=== PATIENT | female | born 1945 | race Caucasian/White ===

== ENCOUNTER 2019-06-17 12:21 | Inpatient (IN) | payer MEDICARE, BC ==
[~2019-06-17] VITALS: Ht 160 cm; Wt 56.5 kg
[2019-06-17] VITALS (17 sets, daily range): BP systolic 117–151; BP diastolic 59–79; BMI 21.8
--- NOTE | ~2019-06-17 | HEMODYNAMI ---
PATIENT:TAYLOR GREGORIO MEDICAL RECORD: [id number] : 41 [id number] ADMISSION DATE: 06/17/19 Generatedon:06/17/201914:26 Patient name: TAYLOR GREGORIO Patient #: [id number] SS N: : 1945 Date of study: 06/17/2019 Page: Of Hemodynamic Procedure Report Patient Data Patient Demographics Procedure consent was obtained First Name: TAYLOR Gender: Female Last Name: DARLINE : 1945 Patient #: [id number] Age: 74 year(s) Race: Unknown Additional ID: [id number] Contact details [address]: [address] [place] [address] rd State: [place] City: [place] Zip code: [address] Past Medical History Allergies Allergen Reaction Date Comments Reported Other allergy 05/08/2019 pcn Admission Admission Data Admission Date: 06/17/2019 Admission Time: 12:21 Admit Source: Emergency department Procedure Procedure Types Cath Procedure Diagnostic Procedure LHC LHC w/Coronaries PCI Procedure AMI/SVG/MANUFACTURING TECHNOLOGY PROFESSOR PTCA or Stent AMI-BMS/KALEY Initial Procedure Description Procedure Date Procedure Date: 06/17/2019 Procedure Start Time: 13:55 Procedure End Time: 14:20 Procedure Staff Name Function Clarke Victoria MD Performing Physician Иван Godfrey RN Fitness Attendant Avery Hudson RT Monitor Gladys Fajardo RT Monitor Lorena Montez RN Nurse John Morillo RT Scrub Procedure Data Cath Procedure Fluoroscopy Diagnostic fluoroscopy Total fluoroscopy Time: 6.1 time: 6.1 min min Diagnostic fluoroscopy Total fluoroscopy dose: 479 dose: 479 mGy mGy Contrast Material Contrast Material Type Amount (ml) Isovue 300 75 Entry Location Entry Primary Successful Side Size Upsize Upsize Entry Closure Succes sful Closure Location (Fr) 1 (Fr) 2 (Fr) Remarks Device Remarks Femoral Right 6 Fr Exoseal artery Short Estimated blood loss: 10 ml Diagnostic catheters Device Type Used For End Catheter Placement MULTIPACK 3DRC 5Fr Procedure catheter MULTIPACK Pigtail 5 Fr Procedure catheter Procedure Complications No complications Procedure Medications Medication Administration Route Dosage Oxygen etCO2 Nasal cannula 2 l/min Lidocaine 2% added to field 20 Heparin Flush Bag added to field 2 bags (1000units/500ml NS) 0.9% NaCl I.V. 100 ml/hr Versed I.V. 2 mg Fentanyl I.V. 50 mcg Integrilin (Bolus I.V. 5 ml 2mg/ml) Plavix P.O. 600 mg Hemodynamics Rest Heart Rate: 67 (bpm) Pressure Samples Time Site Value (mmHg) Purpose Heart Use Rate(bpm) 13:58 AO 167/81(119) Snapshot 91 14:13 LV 130/32,37 Snapshot 85 14:13 AO 130/63(95) Pullback 81 14:13 LV 150/7,36 Pullback 81 Gradients Valve Time Site 1 Site 2 Mean SEP/DFP Peak To Heart Use (mmHg) (sec/min) Peak Rate (mmHg) (bpm) Aortic 14:13 LV AO 10 24 20 81 150/7,36 130/63(95) Calculations Valve P-P Mean Valve Index Valve Source Name Gradient Area Flow (cm2) Aortic 20 10 20 10 Snapshots Pre Cath Intra NCS Post Cath Vital Signs Time Heart Resp SPO2 etCO2 NIBP (mmHg) Rhythm Pain Sedation Rate (ipm) (%) (mmHg) Status Level (bpm) 13:49:17 64 12 100 0 172/92(152) NSR w/ ST 0 (11) 10(A) Elevation , No pain 13:53:36 95 19 94 0 179/100(140) NSR w/ ST 0 (11) 10(A) Elevation , No pain 13:57:56 88 12 95 0 173/101(137) NSR w/ ST 0 (11) 10(A) Elevation , No pain 14:02:14 86 12 95 0 163/96(129) NSR w/ ST 0 (11) 10(A) Elevation , No pain 14:06:26 101 12 96 0 130/82(107) NSR w/ ST 0 (11) 10(A) Elevation , No pain 14:10:36 80 12 96 0 122/72(100) NSR w/ ST 0 (11) 9(A) Elevation , No pain 14:14:43 81 13 98 0 131/73(101) NSR w/ ST 0 (11) 9(A) Elevation , No pain 14:18:53 79 15 98 0 133/74(105) NSR w/ ST 0 (11) 10(A) Elevation , No pain Medications Time Medication Route Dose Verified Delivered Reason Notes E ffectiveness by by 13:50:38 Oxygen etCO2 2 Clarke Buffie used for Nasal l/min Julien Montez RN procedure cannula 13:50:44 Lidocaine 2% added 20ml Clarke Clarke for local to vial Julien Victoria MD anesthetic field 13:50:50 Heparin Flush added 2 Clarke Buffie used for Bag to bags Julien Montez RN procedure (1000units/500ml field NS) 13:51:01 0.9% NaCl I.V. 100 Clarke Buffie Per ml/hr Julien Montez RN physician 13:59:07 Versed I.V. 2 mg Clarke Buffie for sedation Julien Montez RN 13:59:16 Fentanyl I.V. 50 Clarke Buffie for sedation mcg Julien Montez RN 14:01:22 Integrilin I.V. 5 ml Clarke Buffie for wasted (Bolus 2mg/ml) Julien Montez RN antiplatelet 5 ml therapy of vial 14:23:05 Plavix P.O. 600 Clarke Buffie for mg Julien Montez RN antiplatelet therapy Procedure Log Time Note 13:30:33 Lorena Montez RN sent for patient. Start room use. 13:37:19 Admit Source: Emergency department 13:37:23 ACC Patient presents with STEMI CCS Anginal Class 4--Inability to carry out any physical activity w/o angina. Angina may occur at rest. 13:37:27 Procedure Status Emergent Heart Cath (AMI). 13:37:34 Time tracking: Regular hours (M-F 7:00 - 5:00) 13:37:38 Plan of Care:Hemodynamics will remain stable., Cardiac rhythm will remain stable., Comfort level will be maintained., Respiratory function will remain adequate., Patient/ family verbilizes understanding of procedure., Procedure tolerated without complication., Recovers from procedure without complications.. 13:43:10 Patient received from ED to CCL 1 Alert and oriented. Tansferred to table in Supine position. 13:43:17 Signed procedure consent form obtained from patient. 13:43:18 Warm blankets applied, and elis hugger turned on for patient comfort. 13:43:18 Correct patient and procedure confirmed by team. 13:43:19 ECG and BP/O2 sat monitors applied to patient. 13:43:20 Pre-procedure instructions explained to patient. 13:43:20 Pre-op teaching completed and patient verbalized understanding. 13:48:15 Vital chart was started 13:48:16 Baseline sample Acquired. 13:48:22 Rhythm: sinus rhythm , w/ ST elevation 13:48:27 H&P Date Dictated: 06/17/2019 Emergent; H&P N/A. 13:48:30 Family in waiting room. 13:48:31 Patient NPO since Midnight. 13:48:32 Is the patient allergic to Iodine/contrast media? No. 13:48:35 Is patient on blood thinner?No 13:48:38 ACC The patient was administered the following blood thiners within the last 24 hours: None 13:49:19 Patient diabetic? No. 13:49:43 Previous problem with sedation/anesthesia? No ? 13:49:49 Snore? Yes 13:49:50 Sleep apnea? No 13:49:51 Deviated septum? No 13:49:52 Opens mouth fully? Yes 13:49:52 Sticks out tongue? Yes 13:49:54 Airway obstruction? No ? 13:49:57 Dentures? Yes IN 13:50:09 Pre procedure: right dorsailis pedis pulse 1+ Palpable, but thready & weak; easily obliterated 13:50:32 Patient pain scale 6/10 PHYSICIAN OBSERVED. 13:50:38 Oxygen 2 l/min etCO2 Nasal cannula was administered by Lorena Montez RN; used for procedure; 13:50:39 Lab results completed and on chart. 13:50:42 Right groin area was prepped with chlora-prep and draped in sterile fashion 13:50:43 Alarms reviewed by R. N. 13:50:44 Lidocaine 2% 20ml vial added to field was administered by Clarke Victoria MD; for local anesthetic; 13:50:44 Sharps counted by scrub and verified by R.N. 13:50:45 --------ALL STOP TIME OUT------ 13:50:46 Final Timeout: patient, procedure, and site verified with staff and physician. All members of the team are in agreement. 13:50:48 Right groin site verified by team. 13:50:50 Heparin Flush Bag (1000units/500ml NS) 2 bags added to field was administered by Lorena Montez RN; used for procedure; 13:50:51 Fire Safety Assessment: A--An alcohol-based skin anteseptic being used preoperatively., C--Open oxygen or nitrous oxide is being used., D--An ESU, laser, or fiber-optic light is being used. 13:51:01 0.9% NaCl 100 ml/hr I.V. was administered by Lorena Montez RN; Per physician; 13:51:08 Physical assessment completed. ASA score P 3 - A patient with severe systemic disease as per Clarke Victoria MD. 13:51:14 Sedation plan: IV Moderate Sedation Medication:Versed, Fentanyl 13:51:32 2) 60-89 Mildly reduced kidney function, and other findings (as for stage 1) point to kidney disease. 13:51:56 Maximum allowable contrast dose (3.7 X eGFR X 0.75)178 ml. 13:52:15 Use device set Femoral Dx 13:52:18 Tegaderm 4 x 4 (1626W) opened to sterile field. 13:52:19 ACIST Manifold (64310) opened to sterile field. 13:52:19 ACIST Hand Control (71176) opened to sterile field. 13:52:21 ACIST Syringe (94922) opened to sterile field. 13:52:21 Bag Decanter (2001S) opened to sterile field. 13:52:21 Medline Cath Pack ([id number]) opened to sterile field. 13:52:23 DIAGNOSTIC Multipack 5Fr catheter set (GF6664) opened to sterile field. 13:52:25 EMERALD Guide Wire (129-058) opened to sterile field. 13:52:28 Use device set VICTORIA PCI 13:52:30 SHEATH 6FR Isom (TJM364) opened to sterile field. 13:52:32 INFLATOR Merit BasixCompak (XR3581) opened to sterile field. 13:52:33 TUBING High Pressure Extension Tubing (Julien) (US6414K) opened to sterile field. 13:52:42 BMW 300cm [place] 2 J wire ([id number]) opened to sterile field. 13:54:38 Quick Combo opened to sterile field. 13:54:54 Quick combo pads placed on patients chest and back. 13:54:57 Procedure started. 13:54:57 Full Disclosure recording started 13:55:00 Local anesthetic to right femoral artery with Lidocaine 2% by Clarke Victoria MD.INITIAL ACCESS ONLY 13:55:57 Zero performed for pressure channel P1 13:56:01 Zero performed for pressure channel P1 13:56:03 Zero performed for pressure channel P1 13:56:09 Zero performed for pressure channel P1 13:57:14 GUIDE 6FR XBLAD 3.5 catheter ([id number]) opened to sterile field. 13:57:32 A 6 Fr Short sheath was inserted into the Right Femoral artery 13:57:49 6 Fr XBLAD 3.5 guide catheter was inserted over the wire 13:58:17 Pre PCI Site: [place] pLAD has 100% stenosis. 13:58:24 ACC Pre-intervention EVITA Flow is 0. 13:59:07 Versed 2 mg I.V. was administered by Lorena Montez RN; for sedation; 13:59:16 Fentanyl 50 mcg I.V. was administered by Lorena Montez RN; for sedation; 13:59:29 BMW wire advanced. 13:59:34 Wire advanced across lesion. 14:01:22 Integrilin (Bolus 2mg/ml) 5 ml I.V. was administered by Lorena Montez RN; for antiplatelet therapy; wasted 5 ml of vial 14:02:39 Inflate balloon Inflation number: 1 A EMERGE OTW 2.5 x 20 balloon ([id number]) was prepped and advanced across the Prox LAD 100, then inflated to 12 LENA for 0:10 (min:sec) . 14:03:03 Inflation number: 2 The EMERGE OTW 2.5 x 20 balloon ([id number]) was reinflated across the Prox LAD 100, to 13 LENA for 0:10 (min:sec) . 14:04:01 Inflation number: 3 The EMERGE OTW 2.5 x 20 balloon ([id number]) was reinflated across the Prox LAD 100, to 13 LENA for 0:10 (min:sec) . 14:05:12 Balloon removed over the wire. 14:08:06 Place stent Inflation Number: 4 A BELINDA OTW 2.5 x 18 stent ([id number]) was prepped and advanced across the Prox LAD 100. The stent was deployed at 14 LENA for 0:10 (min:sec) 0. 14:08:33 Inflation number: 5 The stent balloon was then re-inflated across the Prox LAD 0 to 14 LENA for 0:10 (min:sec) . 14:09:54 Stent catheter was removed intact over wire. 14:09:55 Wire removed. 14:09:56 Guide catheter removed. 14:10:00 ACC Pre-intervention EVITA Flow is 3. 14:10:17 Post PCI Site: [place] pLAD has 0% stenosis. 14:10:56 A MULTIPACK 3DRC 5Fr catheter was advanced over the wire and used for Procedure. 14:13:01 RCA angiography performed. 14:13:02 Catheter removed. 14:13:18 A MULTIPACK Pigtail 5 Fr catheter was advanced over the wire and used for Procedure. 14:13:33 LV angiography performed. 14:13:34 LV gram done using RESENDEZ 14:13:41 EF : 45 % 14:13:52 LV hemodynamics recorded. 14:14:01 Injector settings: Ml/sec: 10, Volume: 20, 14:14:53 Catheter removed. 14:15:08 EXOSEAL 6Fr (EX600) opened to sterile field. 14:15:44 Sheath removed intact; hemostasis achieved with Exoseal to the Right Femoral artery. 14:15:46 Procedure ended.(Physican Out) 14:16:24 Fluoroscopy time 06.10 minutes. 14:16:32 Fluoroscopy dose: 479 mGy 14:16:32 Flurop Dose total: 479 14:16:37 Dose Area Product 94466 mGy/cm. 14:16:40 Contrast amount:Isovue 300 75ml. 14:16:42 Maximum allowable dose exceeded? No. 14:16:44 Sharps counted by scrub and verified by R.N. 14:16:49 Insertion/operative site no bleeding no hematoma. 14:16:51 Post-op/insertion site Right Femoral artery dressed using a 4 x 4 and Tegaderm. 14:16:53 Post Procedure Pulses reassessed and unchanged 14:16:56 Post-procedure physical assessment completed. ASA score P 3 - A patient with severe systemic disease as per Clarke Victoria MD. 14:17:06 Post procedure rhythm: sinus rhythm 14:17:10 Estimated blood loss: 10 ml 14:17:12 Post procedure instruction explained to patient.Patient verbalizes understanding. 14:17:12 Patient needs reinforcement of post procedure teaching. 14:17:17 Procedure and supply charges have been captured, reviewed, submitted and are correct. 14:17:20 Procedure Complication : No complications 14:18:53 Vital chart was stopped 14:18:53 See physician's report for complete and final results. 14:18:56 Report given to CVICU. 14:19:00 Patient transfered to CVICU with Stretcher. 14:20:35 Procedure ended. 14:20:35 Full Disclosure recording stopped 14:21:23 ACT CARTRIDGE ERROR, UNABLE TO OBTAIN ACT. 14:22:29 End room use (Document Last) 14:23:05 Plavix 600 mg P.O. was administered by Lorena Montez RN; for antiplatelet therapy; Intervention Summary Intervention Notes Time ActionType Lesion and Equipment Action# Pressure Duration Attributes Used 14:02:39 Inflate Prox LAD EMERGE OTW 1 12 00:10 balloon 2.5 x 20 balloon ([id number]) 14:03:03 Reinflate Prox LAD EMERGE OTW 2 13 00:10 balloon 2.5 x 20 balloon ([id number]) 14:04:01 Reinflate Prox LAD EMERGE OTW 3 13 00:10 balloon 2.5 x 20 balloon ([id number]) 14:08:06 Place stent Prox LAD BELINDA OTW 2.5 4 14 00:10 x 18 stent ([id number]) 14:08:33 Reinflate Prox LAD BELINDA OTW 2.5 5 14 00:10 stent x 18 stent balloon ([id number]) Device Usage Item Name Manufacture Quantity Catalog Number [facility] Lot# / Charge Number Stock Stock Serial# Code Tegaderm 4 x 3M 1 1626W [id number] 905835 453294 5 4 (1626W) ACIST Acist 1 47638 649696 893766 478892 5 Manifold Medical (19127) Systems Inc ACIST Hand Acist 1 95597 669795 500459 967567 5 Control Medical (94847) Systems Inc ACIST Syringe Acist 1 68589 645162 258853 524402 20 (33573) Medical Systems Inc Bag Decanter Microtek 1 2001S 037996 98270 986468 5 (2001S) Medical Inc. Medline Cath Medline 1 [id number] 066096 15299 632651 5 Pack ([id number]) DIAGNOSTIC Cardinal 1 YT8842 657501 07677 757429 30 Multipack 5Fr Health catheter set (KB2412) EMERALD Guide Cardinal 1 502-455 288899 126454 001322 5 Wire Health (502455) SHEATH 6FR Terumo 1 DYN475 488557 690493 126473 40 Isom (EBY189) INFLATOR Merit 1 OO2330 605994 213310 104645 15 Merit Medical BasixCompak (VF9771) TUBING High Merit 1 TS3155Y 462669 33998 502035 10 Pressure Medical Extension Tubing (Victoria) (LI2824R) BMW 300cm Beard 1 [id number] 220415 681111 103528 5 [place] 2 J Vascular wire (6467211H) Quick Spectrum Mobile Systems 1 80978-879423 653864 697240 014226 5 GUIDE 6FR Cardinal 1 64363176 219516 960685 692706 10 XBLAD 3.5 Health catheter (64619859) EMERGE OTW Seaview 1 [id number] 725784 344937 938918 5 [id number] 2.5 x 20 Scientific balloon ([id number]) BELINDA OTW 2.5 Medtronic 1 [id number] 603235 70847 362390 5 [id number] x 18 stent ([id number]) MULTIPACK Cardinal 1 904067 5 3DRC 5Fr Health catheter MULTIPACK Cardinal 1 901333 5 Pigtail 5 Fr Health catheter EXOSEAL 6Fr Cardinal 1 EX600 937502 845768 601409 10 (EX600) Health Signature Audit [place] Stage Time Signature Unsigned Intra-Procedure 06/17/2019 Avery Hudson 2:25:58 PM RT(R) Signatures Performing Physician : Signature : Clarke Victoria MD Date : Time : Monitor : Avery Cumberland RT Signature : Date : Time : Monitor : Gladys Young Signature : RT Date : Time : Nurse : Buffie Montez RN Signature : Date : Time : [address] [place] [address]
--- NOTE | 2019-06-17 13:15 | NUR ---
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 EDP NOTIFIED, AND 12-LEAD EKG REPEATED.
[2019-06-17 13:26] LABS: BASOPHILS 0.3 % (0-2); EOSINOPHILS 1.2 % (0-7); HEMATOCRIT 38.4 % (36.0-48.0); HEMOGLOBIN 13.6 g/dL (12-16); IMMATURE GRANULOCYTES 0.4 % (0-5); LYMPHOCYTES 36.4 % (15-50); MCH 32.5 pg (26.0-34.0); MCHC 35.4 g/dL (31.0-37.0); MCV 91.9 fL (80.0-100.0); MEAN PLATELET VOLUME 10.2 fL (7.4-10.4); MONOCYTES 8.6 % (2-11); NEUTROPHILS 53.1 % (40-80); PLATELET COUNT 308 10x3/uL (130-400); RBC 4.18 10x6/uL (4.00-5.40); RDW 12.7 % (11.5-14.5); WBC 10.2 10x3/uL (4.8-10.8)
[2019-06-17 13:44] LABS: ALBUMIN 3.6 g/dL (3.4-5.0); ALKALINE PHOSPHATASE 69 U/L (46-116); ALT (SGPT) 13 U/L (10-68); CALC OSMOLALITY 272 mosm/kg (275-300); CALCIUM 9.8 mg/dL (8.5-10.1); CARBON DIOXIDE 22.8 mmol/L (21.0-32.0); CHLORIDE - SERUM 99 mmol/L (98-107); CREATININE - SERUM 0.9 mg/dL (0.6-1.3); GLUCOSE 137 mg/dL (74-106); POTASSIUM - SERUM 3.7 mmol/L (3.5-5.1); PROTEIN - SERUM 7.6 g/dL (6.4-8.2); SODIUM 135 mmol/L (136-145); UREA NITROGEN 14 mg/dL (7-18); eGFR NON AFRICAN AMERICAN 64 mL/min (90-120)
[2019-06-17 13:53] LABS: CKMB 1.2 U/L (0.0-3.6); CREATINE KINASE 44 UL (21-215); MAGNESIUM - SERUM 1.2 mg/dL (1.8-2.4)
[2019-06-17 13:54] LABS: TROPONIN-I < 0.017 ng/mL (0.000-0.060)
[2019-06-17 14:02] LABS: APTT 23.8 SECONDS (22.8-39.4); INR 0.96 (0.85-1.17); PROTIME 12.3 SECONDS (11.6-15.0)
--- NOTE | 2019-06-17 15:00 | NUR ---
PT ARRIVED TO UNIT AROUND 1440. ON 2L OF O2 VIA NC. R-GROIN EXOCELE, DRESSING C/D/I, NO BLEEDING OR HEMATOMA NOTED. PEDAL PULSES EQUAL BILAT. PT SLIGHTY DROWSY. ANSWERS QUESTIONS APPROPRIATELY. SPOUSE AT BEDSIDE. WILL CONTINUE TO MONITOR.
[2019-06-17] MEDS ORDERED: OMEPRAZOLE20 M1 PO (15:39)
[2019-06-17] MEDS ORDERED: LISINOPRIL20 MG PO (15:40)
[2019-06-17] MEDS ORDERED: CELEXA20 MG PO (15:41)
--- NOTE | 2019-06-17 17:00 | NUR ---
PT CONTINUES LAYING FLAT PER PROTOCOL. RIGHT GROIN DRESSING C/D/I. NO BLEEDING AND NO HEMATOMA NOTED. PEDAL PULSES EQUAL JUDY. WILL CONTINUE TO MONITOR.
--- NOTE | 2019-06-17 19:00 | NUR ---
REPORT RECEIVED. RECEIVED PATIENT IN BED. AWAKE AND ALERT. ORIENTED X4. SPEECH CLEAR. MONITORS CONNECTED TO PATIENT WITH ALARMS SET. VSS. CALL LIGHT IN REACH AND ABLE TO UTILIZE TO MAKE NEEDS KNOWN.
[2019-06-18] VITALS (13 sets, daily range): BP systolic 100–139; BP diastolic 45–84; Ht 160 cm; Wt 56.5 kg
--- NOTE | 2019-06-18 01:00 | NUR ---
PATIENT AMBULATED TO BATHROOM X1 ASSIST. GAIT STEADY. VOIDED LARGE AMT OF HEMA URINE. ASSISTED BACK TO BED. DESTINI WITHOUT DIFF
[2019-06-18 06:11] LABS: BASOPHILS 0.3 % (0-2); EOSINOPHILS 1.4 % (0-7); HEMOGLOBIN 13.1 g/dL (12-16); IMMATURE GRANULOCYTES 0.3 % (0-5); LYMPHOCYTES 11.7 % (15-50); MCH 32.4 pg (26.0-34.0); MCHC 34.5 g/dL (31.0-37.0); MEAN PLATELET VOLUME 10.2 fL (7.4-10.4); MONOCYTES 7.7 % (2-11); NEUTROPHILS 78.6 % (40-80); PLATELET COUNT 286 10x3/uL (130-400); RBC 4.04 10x6/uL (4.00-5.40); RDW 13.1 % (11.5-14.5)
[2019-06-18 06:24] LABS: MCV 94.1 fL (80.0-100.0); WBC 7.6 10x3/uL (4.8-10.8)
[2019-06-18 06:34] LABS: CALC OSMOLALITY 265 mosm/kg (275-300); CALCIUM 8.9 mg/dL (8.5-10.1); CARBON DIOXIDE 28.6 mmol/L (21.0-32.0); CHLORIDE - SERUM 99 mmol/L (98-107); CREATININE - SERUM 0.7 mg/dL (0.6-1.3); GLUCOSE 110 mg/dL (74-106); SODIUM 133 mmol/L (136-145); UREA NITROGEN 11 mg/dL (7-18); eGFR NON AFRICAN AMERICAN 86 mL/min (90-120)
[2019-06-18 06:35] LABS: POTASSIUM - SERUM 4.6 mmol/L (3.5-5.1)
[2019-06-18] MEDS ORDERED: PEPCID AC20 MG PO (17:30)
--- NOTE | 2019-06-18 18:09 | NUR ---
0725: AROUSES EASILY TO VERBAL STIMULI. SEE FLOWSHEET FOR ASSESSMENT. DENIES PAIN. 0915: DR. VELAZQUEZ HERE. ORDERS REC'D TO TRANSFER TO FLOOR. 1200: AMBULATING IN ROOM WITH DIFFICULTY. DENIES PAIN. NO DISTRESS NOTED. 1745: DR. VELAZQUEZ PHONE IN REGARD TO PATIENT REQUESTING HOME MEDS. OKAYED BY DR. VELAZQUEZ. 1800: NO DISTRESS NOTED. CALL LIGHT WITHIN REACH. NO ACUTE CHANGES IN CONDITION.
--- NOTE | 2019-06-18 19:00 | NUR ---
REPORT RECEIVED. RECEIVED PATIENT IN BED. AWAKE AND ALERT. ORIENTED X 4. SPEECH CLEAR. DENIES PAIN OR COMPLAINT. SHIFT ASSESSMENT COMPLETED PER FLOW SHEET WITH NO ACUTE DISTRESS OBSERVED. MONITORS CONNECTED TO PATIENT WITH ALARMS SET. VSS. ICE WATER AND SNACK GIVEN PER PT REQUEST. CALL LIGHT IN REACH AND ABLE TO UTILIZE TO MAKE NEEDS KNOWN.
[2019-06-19] VITALS (23 sets, daily range): BP systolic 79–134; BP diastolic 35–90
--- NOTE | 2019-06-19 02:05 | NUR ---
SPOKE WITH DR. MARCUS FRANCISING PATIENTS ECG CHANGES. NEW ORDERS RECEIVED.
--- NOTE | 2019-06-19 02:30 | NUR ---
IV L AC OUT/ CATH INTACT. 22 GAUGE IV INSERTED TO RT WRIST X 1 ATTEMPT. DESTINI WITHOUT DIFF
--- NOTE | 2019-06-19 03:00 | NUR ---
RESTING WITH EYES CLOSED, ROUSES EASILY. VSS.
--- NOTE | 2019-06-19 05:00 | NUR ---
RESTING WITH EYES CLOSED, EASILY ROUSED AND ALERT. VSS
--- NOTE | 2019-06-19 08:43 | NUR ---
DR. VELAZQUEZ HERE. PLAN TO KEEP IN ICU DUE TO ARRYTHMIAS.
--- NOTE | 2019-06-19 20:20 | NUR ---
PT RECEIVED WITH EYES OPEN WATCHING TV. VSS. DENIES PAIN. FRESH WATER GIVEN PER REQUEST. IV TO RIGHT WRIST WITH AMIODARONE AT 0.5MG/MIN. NO OTHER NEEDS MADE KNOWN. CALL LIGHT IN REACH. WILL CONTINUE TO OBSERVE.
--- NOTE | 2019-06-19 22:02 | NUR ---
RECEIVED SCHEDULED MEDICATIONS PER MAR, TOLERATED WELL. NO NEEDS OR CONCERNS NOTED. CALL LIGHT IN REACH. WILL CONTINUE TO OBSERVE.
--- NOTE | 2019-06-19 23:42 | NUR ---
REASSESSMENT COMPLETED, SEE FLOW SHEET. CALL LIGHT IN REACH. WILL CONTINUE TO OBSERVE.
[2019-06-20] VITALS (15 sets, daily range): BP systolic 83–165; BP diastolic 44–70
--- NOTE | 2019-06-20 04:00 | NUR ---
REASSESSMENT COMPLETED, SEE FLOW SHEET.
--- NOTE | 2019-06-20 09:08 | NUR ---
0700 PT RECIEVED ALERT AND ORIENTED VSS ON ROOM AIR LFA PIV WITH AMIO 0.5MG/MIN, R GROIN SITE SOFT, PULSES PALPABLE, DENIES PAIN, CONTINENT, CALL LIGHT WITHIN REACH 0900 TOOK AM MEDS AND ATE 75% BREAKFAST
--- NOTE | 2019-06-20 11:11 | NUR ---
Nutrition Follow-up: Diet: Cardiac PO intake: 75% of breakfast this AM Wt: 124# Last BM: 06/19 Labs reviewed Meds reviewed Rec continue current diet as tolerated. [place] food preferences within diet restrictions. RD following.
--- NOTE | 2019-06-20 12:30 | NUR ---
PT COMLAINING OF GAS PAIN, ORDERS FOR PEPCID
--- NOTE | 2019-06-20 15:26 | NUR ---
PT AMBULATING IN HALLWAY TOLERATING WELL, HR STABLE ON PORTABLE TELEMETRY
--- NOTE | 2019-06-20 20:32 | NUR ---
PT RECEIVED IN BED WITH EYES OPEN. AT BEDSIDE. NO NEEDS OR CONCERNS NOTED. CALL LIGHT IN REACH. WILL CONTINUE TO OBSERVE.
--- NOTE | 2019-06-20 23:55 | NUR ---
PT WITH EYES CLOSED AND CHEST RISING. EASILY AWOKEN TO VERBAL STINULI. VS OBTAINED. NO CONCERNS NOTED. CALL LIGHT IN REACH. WILL CONTINUE TO OBSERVE.
[2019-06-21 03:00] VITALS: BP 124/64
[2019-06-21 07:00] VITALS: BP 126/71
--- NOTE | 2019-06-21 07:00 | NUR ---
RECEIVED BEDSIDE REPORT ON PATIENT AND ASSUMED CARE. PATIENT ALERT AND ORIENTED X 4. VSS. BBS - CLEAR AND EQUAL, HR - 65 RRR, IV 22 GA TO LEFT FA NSL. HEAD TO TOE ASSESSMENT COMPLETED. RIGHT GROIN SITE SOFT, NO HEMATOMA OR BRUISING NOTED. DRESSING CLEAN DRY AND INTACT. PATIENT GIVEN BREAKFAST TRAY. NO NEEDS AT THIS TIME.
--- NOTE | 2019-06-21 08:39 | NUR ---
PATIENT ATE 100% OF BREAKFAST, AT BEDSIDE. MORNING MEDS GIVEN PER MAR. WILL CONTINUE TO MONITOR.
--- NOTE | 2019-06-21 09:25 | NUR ---
PATIENT WATCHING TV, NO NEEDS AT THIS TIME. WILL CONTINUE TO MONITOR.
[2019-06-21 11:00] VITALS: BP 134/67
--- NOTE | 2019-06-21 11:11 | NUR ---
PATIENT SITTING UP IN BED, AT BEDSIDE, VSS. WATCHING TV. GIVEN CUP OF COFFEE, NO NEEDS AT THIS TIME. WILL CONTINUE TO MONITOR.
--- NOTE | 2019-06-21 11:45 | NUR ---
PATIENT GIVEN LUNCH TRAY.
--- NOTE | 2019-06-21 12:47 | NUR ---
PATIENT UP WALKING IN HALLWAY.
[2019-06-21] MEDS ORDERED: AMIODARONE HCL200 MG PO (13:32)
[2019-06-21] MEDS ORDERED: PLAVIX75 MG PO (13:32)
[2019-06-21] MEDS ORDERED: COREG 3.1253.125 MG PO (13:32)
[2019-06-21 14:00] VITALS: BP 127/67
--- NOTE | 2019-06-21 14:27 | NUR ---
F/U APPOINTMENT MADE FOR THE PT. DISCHARGE INSTUCTIONS WENT OVER WITH THE PT INCLUIDING, WOUND CARE, MEDICATIONS, ACTIVITY TOLERANCE AND F/U APPOINTMENTS. NO QUESTIONS AT THIS TIME. PTS PRESENT. PIV DC'D WITH THE CATHETER TIP INTACT. ALL BELONINGS ACCOUNTED FOR. PT LEFT WITH NO S/SX OF DISTRESS/DISCOMFORT NOTED. LEFT IN A STABLE CONDITION.
--- NOTE | 2019-06-21 15:37 | MORECARE ---
CASE MANAGEMENT DISCHARGE SUMMARY PATIENT: TAYLOR GREGORIO UNIT: [id number] ADM DATE: 06/17/19 AGE: 74 : 41 SEX: F [facility] AUTHOR: BLANKA PAGAN PHYSICIAN: REFERRING PHYSICIAN: AGUSTIN VELAZQUEZ M.D. DATE OF SERVICE: 06/21/19 Discharge Plan Patient Name: TAYLOR GREGORIO Facility: [facility]:[place] : 1945 Planned Disposition: Home Anticipated Discharge Date: Discharge Date: 06/21/2019 Expected LOS: Initial Reviewer: [email or web address] Initial Review Date: 06/21/2019 Generated: 06/21/19 4:37 pm DCPIA - Discharge Planning Initial Assessment Updated by [email or web address]: Katharine Garcia on 06/21/19 3:37 pm * Is the patient Alert and Oriented? Yes * How many steps to enter\exit or inside your home? * PCP KIAN * Pharmacy [facility] * Preadmission Environment Home with Family * ADLs Independent * Equipment None * List name and contact numbers for known caregivers / representatives who currently or will assist patient after discharge: [facility] [place] [facility] - [phone] * Verbal permission to speak to the caregivers and representatives has been obtained from the patient. Yes * Community resources currently utilized None * Additional services required to return to the preadmission environment? No * Can the patient safely return to the preadmission environment? Yes * Has this patient been hospitalized within the prior 30 days at any hospital? No Patient Name: TAYLOR GREGORIO Page [id number] at 1537 All edits/amendments must be made on the electronic document DICTATION DATE: 06/21/19 1536 MAIL MACHINE OPERATOR: AILEEN 06/21/19 1536 RPT#: [id number] DC DATE:06/21/19 STATUS: DIS IN [facility] [address] [place] [address] END OF REPORT
--- NOTE | 2019-06-21 15:49 | MORECARE ---
CASE MANAGEMENT DISCHARGE SUMMARY PATIENT: TAYLOR GREGORIO UNIT: [id number] ADM DATE: 06/17/19 AGE: 74 : 43 SEX: F ROOM/BED: D.[facility] AUTHOR: EJ,DOC PHYSICIAN: REFERRING PHYSICIAN: AGUSTIN VELAZQUEZ M.D. 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 Patient lives at home with her Sunny and plans to return there upon discharge. Patient feels this would be a safe discharge. CM discussed availability / needs of home health and medical equipment. Patient denies any discharge needs at this time. Patient states she will have her drive her home upon discharge. CM will continue to follow and assist as needed with discharge planning / needs. Printer Operator: Katharine Garcia Appended by Katharine Garcia on 06/21/2019 15:40 CDT: d/c imm signed 06/21/19 @ 1335 DCPIA - Discharge Planning Initial Assessment Updated by [email or web address]: Katharine Garcia on 06/21/19 3:37 pm * Is the patient Alert and Oriented? Yes * How many steps to enter\exit or inside your home? * PCP PARCHJOHNNA * Pharmacy [facility] * Preadmission Environment Home with Family * ADLs Independent * Equipment None * List name and contact numbers for known caregivers / representatives who currently or will assist patient after discharge: SUNNY FIGUEROA - [facility] - [phone] * Verbal permission to speak to the caregivers and representatives has been obtained from the patient. Yes * Community resources currently utilized None * Additional services required to return to the preadmission environment? No * Can the patient safely return to the preadmission environment? Yes * Has this patient been hospitalized within the prior 30 days at any hospital? No Coverage Notice Reviewer: [email or web address] Moy Garcia Notice Issued Date-Time: 06/21/2019 13:35 Notice Type: IM Discharge Notice Notice Delivered To: Patient Relationship to Patient: Self Pile Driving Technician Name: Delivery Method: HAND - Hand Delivered Nehal Days: Prior Verbal Notification: Recipient Understood Notice: Yes Recipient Signature: Yes Med Rec Note Co-signed by Attending: Coverage Notice Comment: Last DP export: 06/21/19 2:37 p Patient Name: TAYLOR GREGORIO Page [id number] at 1549 All edits/amendments must be made on the electronic document DICTATION DATE: 06/21/19 1548 SENIOR BOILER OPERATOR: AILEEN 06/21/19 1548 RPT#: [id number] DC DATE:06/21/19 STATUS: DIS IN [facility] [address] [place] [address] END OF REPORT
== END 2019-06-21 14:45 | disposition home or self-care (01) | DRG 246 ==
LOC: D.ER 12:21 → D.CVICU 14:37
PROVIDERS: Family Medicine; ADMIT Internal Medicine Cardiovascular Disease; ATTEND Internal Medicine Cardiovascular Disease
PROC: B2151ZZ Fluoroscopy of Left Heart using Low Osmolar Contrast (ICD-10-PCS; 2019-06-17)
PROC: 4A023N7 Measurement of Cardiac Sampling and Pressure, Left Heart, Percutaneous Approach (ICD-10-PCS; 2019-06-17)
PROC: 027034Z Dilation of Coronary Artery, One Artery with Drug-eluting Intraluminal Device, Percutaneous Approach (ICD-10-PCS; principal; 2019-06-17 13:30)
PROC: B2111ZZ Fluoroscopy of Multiple Coronary Arteries using Low Osmolar Contrast (ICD-10-PCS; 2019-06-17 13:30)
DX: I97.190 Other postprocedural cardiac functional disturbances following cardiac surgery (principal); I21.A9 Other myocardial infarction type; T82.897A Other specified complication of cardiac prosthetic devices, implants and grafts, initial encounter; R00.0 Tachycardia, unspecified; I48.0 Paroxysmal atrial fibrillation; I49.1 Atrial premature depolarization; I10 Essential (primary) hypertension; I25.10 Atherosclerotic heart disease of native coronary artery without angina pectoris; K21.9 Gastro-esophageal reflux disease without esophagitis

== ENCOUNTER 2019-07-13 12:42 | Inpatient (IN) | payer MEDICARE, BC ==
[~2019-07-13] VITALS: Ht 160 cm; Wt 54.9 kg
--- NOTE | ~2019-07-13 | HEMODYNAMI ---
PATIENT:TAYLOR GREGORIO MEDICAL RECORD: [id number] : 41 LOCATION:D.OH [id number] ADMISSION DATE: 07/14/19 Generatedon:07/15/201910:18 Patient name: TAYLOR GREGORIO Patient #: [id number] N: : 1945 Date of study: 07/15/2019 Page: Of Hemodynamic Procedure Report Patient Data Patient Demographics Procedure consent was obtained First Name: TAYLOR Gender: Female Last Name: DARLINE : 1945 Patient #: [id number] Age: 74 year(s) Race: Unknown Additional ID: [id number] Contact details [address]: [address] [place] [address] rd State: [place] City: [place] Zip code: [address] Past Medical History Allergies Allergen Reaction Date Comments Reported Other allergy 05/08/2019 pcn Other allergy 07/15/2019 pcn Admission Admission Data Admission Date: 07/14/2019 Admission Time: 11:37 Room #: D.2233 Procedure Procedure Types Cath Procedure Peripheral Cath Diagnostic Procedure Kyphoplasty Kyphoplasty Lumbar Procedure Description Procedure Date Procedure Date: 07/15/2019 Procedure Start Time: 9:32 Procedure Staff Name Function Billy Saunders MD Performing Physician Chase Noriega RT Monitor Dawn Ramos RT Scrub Dionne Ortiz RN Nurse Procedure Data Cath Procedure Fluoroscopy Diagnostic fluoroscopy Total fluoroscopy Time: 5.4 time: 5.4 min min Diagnostic fluoroscopy Total fluoroscopy dose: 84 dose: 84 mGy mGy Procedure Medications Medication Administration Route Dosage Versed I.V. 1 mg Fentanyl I.V. 50 mcg Benadryl I.V. 25 mg Versed I.V. 1 mg Fentanyl I.V. 50 mcg Vancomycin I.V.P.B 500 mg Hemodynamics Rest Heart Rate: 66 (bpm) Snapshots Pre Cath Intra NCS Post Cath Vital Signs Time Heart Resp SPO2 etCO2 NIBP (mmHg) Rhythm Pain Sedation Rate (ipm) (%) (mmHg) Status Level (bpm) 9:11:28 97 28.6 167/95(143) NSR 0 (11) 10(A) , No pain 9:15:37 66 18 97 31.6 184/94(149) NSR 0 (11) 10(A) , No pain 9:20:36 67 23 98 33.1 Measuring NSR 0 (11) 10(A) , No pain 9:21:58 67 18 97 33.8 Time NSR 0 (11) 10(A) Exceeded , No pain 9:23:59 67 13 97 33.1 101/77(84) NSR 0 (11) 10(A) , No pain 9:28:58 67 21 98 28.6 91/75(83) NSR 0 (11) 10(A) , No pain 9:33:57 71 16 97 34.6 Measuring NSR 0 (11) 8(A) , No pain 9:34:30 70 17 98 35.3 179/97(145) NSR 0 (11) 8(A) , No pain 9:37:34 71 13 97 6.7 156/79(120) NSR 0 (11) 8(A) , No pain 9:41:59 72 11 94 32.4 142/60(106) NSR 0 (11) 8(A) , No pain 9:46:04 77 17 92 28.6 103/69(88) NSR 0 (11) 8(A) , No pain 9:50:02 73 11 86 27.8 119/78(100) NSR 0 (11) 8(A) , No pain 9:54:08 72 9 87 32.4 113/73(97) NSR 0 (11) 8(A) , No pain 9:58:15 70 7 89 33.1 109/63(83) NSR 0 (11) 8(A) , No pain 10:02:19 70 9 90 32.4 113/66(89) NSR 0 (11) 8(A) , No pain 10:06:27 68 8 90 33.1 100/63(88) NSR 0 (11) 8(A) , No pain 10:10:27 69 10 91 32.3 115/69(89) NSR 0 (11) 8(A) , No pain 10:14:33 68 9 91 33.1 115/69(91) NSR 0 (11) 8(A) , No pain Medications Time Medication Route Dose Verified Delivered Reason Notes Effectiven ess by by 9:30:40 Vancomycin I.V.P.B 500mg Billy Dionne used for Nicky Ortiz rib matcher and fitter 9:33:26 Benadryl I.V. 25 mg Billy Dionne for Nicky Ortiz RN sedation 9:33:40 Versed I.V. 1 mg Billy Dionne for Nicky Ortiz RN sedation 9:33:52 Fentanyl I.V. 50 Billy Dionne for mcg Nicky Ortiz RN sedation 9:42:07 Versed I.V. 1 mg Billy Dionne for Nicky Ortiz RN sedation 9:42:15 Fentanyl I.V. 50 Billy Dionne for mcg Nicky Ortiz RN sedation Procedure Log Time Note 8:56:57 Chase Noriega RT (R) (CV) sent for patient. Start room use. 8:57:06 Time tracking: Regular hours (M-F 7:00 - 5:00) 8:57:11 Plan of Care:Hemodynamics will remain stable., Cardiac rhythm will remain stable., Comfort level will be maintained., Respiratory function will remain adequate., Patient/ family verbilizes understanding of procedure., Procedure tolerated without complication., Recovers from procedure without complications.. 8:57:54 Patient received from Med/Surg to IR Alert and oriented. Tansferred to table in Prone position. 8:58:00 Signed procedure consent form obtained from patient. 8:58:01 Correct patient and procedure confirmed by team. 8:58:02 ECG and BP/O2 sat monitors applied to patient. 8:58:03 Full Disclosure recording started 8:58:04 - 8:58:10 H&P Date Dictated: 07/15/2019 Within 30 days and on chart.. 8:58:12 Pre-procedure instructions explained to patient. 8:58:12 Pre-op teaching completed and patient verbalized understanding. 8:58:14 Family in waiting room. 8:58:26 Patient NPO since Midnight. 8:58:39 Patient allergic to Other allergypcn 8:58:44 Is the patient allergic to Iodine/contrast media? No. 9:00:51 Is patient on blood thinner?No 9:00:56 Patient diabetic? No. 9:00:58 - 9:00:59 ----Pre-sedation anethsthesia assessment.---- 9:01:01 Previous problem with sedation/anesthesia? No ? 9:01:02 Snore? Yes 9:01:04 Sleep apnea? No 9:01:06 Deviated septum? No 9:01:08 Opens mouth fully? Yes 9:01:10 Sticks out tongue? Yes 9:01:14 Airway obstruction? No ? 9:01:18 Dentures? No ? 9:01:19 - 9:01:26 Patient pain scale 0/10 no. 9:03:21 IV patent on arrival in left forearm with 0.45%NaCl at KVO. 9:03:24 Sharps counted by scrub and verified by R.N. 9:03:25 Alarms reviewed by R. N. 9:03:30 Lumbar area was prepped with dura-prep and draped in sterile fashion 9:03:35 Use device set IR Diagnostic 9:03:40 Bag Decanter () opened to sterile field. 9:03:40 Sterile Angiographic Pack opened to sterile field. 9:03:41 Tegaderm 4 x 4 (1626W) opened to sterile field. 9:10:18 Vital chart was started 9:10:26 Baseline sample Acquired. 9:15:22 Baseline sample Acquired. 9:30:40 Vancomycin 500mg I.V.P.B was administered by Dionne Ortiz RN; used for procedure; 9::52 Physician arrived 9::53 --------ALL STOP TIME OUT------ 9:30:54 Final Timeout: patient, procedure, and site verified with staff and physician. All members of the team are in agreement. 9:31:05 Lumbar site verified by team. 9:31:11 Fire Safety Assessment: A--An alcohol-based skin anteseptic being used preoperatively., C--Open oxygen or nitrous oxide is being used. 9:31:19 Sedation plan: IV Moderate Sedation Medication:Versed, Fentanyl 9:32:01 Procedure started. 9:32:08 Local anesthetic to Lumbar area L-2 with Lidocaine 1% by Billy Saunders MD.INITIAL ACCESS ONLY 9:32:22 Breezy BONE BX 11GA kit opened to sterile field. 9:32:22 Breezy BONE CEMENT WITH NEEDLE AUTOPLEX Kit opened to sterile field. 9:32:22 BREEZY 15/2 VERT AUGMENTATION opened to sterile field. 9:32:23 Breezy 11G Curved Needle opened to sterile field. 9:33:26 Benadryl 25 mg I.V. was administered by Dionne Ortiz RN; for sedation; 9:33:40 Versed 1 mg I.V. was administered by Dionne Ortiz RN; for sedation; 9::52 Fentanyl 50 mcg I.V. was administered by Dionne Ortiz RN; for sedation ; 9:42:07 Versed 1 mg I.V. was administered by Dionne Ortiz RN; for sedation; 9:42:15 Fentanyl 50 mcg I.V. was administered by Dionne Ortiz RN; for sedation ; 9:54:22 Procedure ended.(Physican Out) 10:00:41 Fluoroscopy time 05.40 minutes. 10:01:04 Fluoroscopy dose: 84 mGy 10:01:04 Flurop Dose total: 84 10:01:12 Sharps counted by scrub and verified by R.N. 10:02:09 Post Lumbar area:stable 10:02:15 Post-op/insertion site Lumbar area dressed using a 4 x 4 and Tegaderm. 10:02:25 Procedure and supply charges have been captured, reviewed, submitted an d are correct. 10:16:59 Post procedure instruction explained to patient.Patient verbalizes understanding. 10:17:01 Report given to Med/Surg. 10:17:04 Patient transfered to Med/Surg with Bed. 10:18:14 Vital chart was stopped Device Usage Item Name Manufacture Quantity Catalog Hospital Part Current Minim al Lot# / Number Charge Number Stock Stock Serial# Code Bag Decanter Microtek 1 [id number] 5 () [employer] Inc[employer] Sterile Cardinal 1 [id number] 5 Angiographic Health Pack Tegaderm 4 x 3M 1 [id number] [id number] 5 4 (1626W) Derby BONE Breezy 1 [id number] [id number] [id number] 5 BX 11GA kit Breezy BONE Derby 1 [id number] 466865 292951 934961 5 CEMENT WITH NEEDLE AUTOPLEX Kit BREEZY 15/2 Breezy 1 [id number] 150348 [id number] [id number] 5 VERT AUGMENTATION Breezy 11G Derby 1 [id number] 189059 [id number] 5 Curved Needle Signature Audit [place] Stage Time Signature Unsigned Intra-Procedure 07/15/2019 Chase 10:18:10 AM Leann RT (R) (CV) Signatures Monitor : Chase Signature : Leann RT Date : Time : [facility] [address] [place] [address]
[~2019-07-13 12:42] MED LIST: AMIODARONE HCL200 MG PO; CELEXA20 MG PO; COREG 3.1253.125 MG PO; LISINOPRIL20 MG PO; OMEPRAZOLE20 M1 PO; PEPCID AC20 MG PO; PLAVIX75 MG PO
--- NOTE | 2019-07-13 13:46 | NUR ---
PT LYING IN BED. NO DISTRESS NOTED. FAMILY AT BEDSIDE.
--- NOTE | 2019-07-13 14:00 | NUR ---
TRAUMA BAND # [id number]
[2019-07-13 15:44] LABS: BASOPHILS 0.1 % (0-2); HEMATOCRIT 36.6 % (36.0-48.0); HEMOGLOBIN 12.9 g/dL (12-16); IMMATURE GRANULOCYTES 0.2 % (0-5); LYMPHOCYTES 19.1 % (15-50); MCH 32.3 pg (26.0-34.0); MCHC 35.2 g/dL (31.0-37.0); MCV 91.7 fL (80.0-100.0); NEUTROPHILS 73.6 % (40-80); PLATELET COUNT 235 10x3/uL (130-400); RBC 3.99 10x6/uL (4.00-5.40); RDW 13.1 % (11.5-14.5); WBC 8.8 10x3/uL (4.8-10.8)
--- NOTE | 2019-07-13 15:45 | NUR ---
TANYAT CALLED TO [facility] ON [facility].
[2019-07-13 16:00] LABS: INR 0.97 (0.85-1.17); PROTIME 12.4 SECONDS (11.6-15.0)
--- NOTE | 2019-07-13 16:35 | NUR ---
PT ARRIVES TO MED SURG VIA STRETCHER. PT REPORTS PAIN 10/10 TO LOWER BACK WITH MOVEMENT. PT REPORTS LOWER BACK PAIN 7/10 WHILE RESTING IN BED. PT STATES THAT MOST COMFORTABLE POSITION IS SIDE LYING ON RIGHT SIDE. PT DOES NOT BELIEVE THAT SHE WILL BE ABLE TO AMBULATE TO BATHROOM. PT EDUCATED ON PUREWICK. PT REQUESTS PUREWICK. WILL APPLY AFTER URINE SAMPLE OBTAINED. RACHEL ALARM IS ON. BED IS IN THE LOWEST POSITION. CALL LIGHT AND BEDSIDE TABLE ARE WITHIN REACH. SIDE RAILS X 2. WILL CONT TO MONITOR.
[2019-07-13 16:42] LABS: ALBUMIN 3.4 g/dL (3.4-5.0); ANION GAP 17.1 mmol/L (8-16); BILIRUBIN - TOTAL 0.38 mg/dL (0.2-1.3); CALCIUM 8.9 mg/dL (8.5-10.1); CARBON DIOXIDE 24.8 mmol/L (21.0-32.0); CREATININE - SERUM 0.8 mg/dL (0.6-1.3); POTASSIUM - SERUM 4.9 mmol/L (3.5-5.1); PROTEIN - SERUM 6.9 g/dL (6.4-8.2)
--- NOTE | 2019-07-13 16:45 | NUR ---
IN AND OUT CATH COMPLETED FOR URINE SAMPLE COLLECTION. STERILE TECHNIQUE UTILIZED FOR CATHETER INSERTION. 500ML YELLOW URINE DRAINED FROM BLADDER. URINE SPECIMEN COLLECTED. PT TOLERATED WELL. BED IS IN THE LOWEST POSITION. CALL LIGHT AND BEDSIDE TABLE ARE WITHIN REACH. SIDE RAILS X 2. RACHEL ALARM IS ON. PT DENIES FURTHER NEEDS AT THIS TIME. WILL CONT TO MONITOR.
--- NOTE | 2019-07-13 17:00 | NUR ---
ALL FALL PRECAUTIONS IN PLACE EXCEPT FOR YELLOW GOWN. PT REQUESTS TO WAIT FOR GOWN PLACEMENT UNTIL PAIN IS MORE MANAGED.
--- NOTE | 2019-07-13 17:13 | NUR ---
DECK MECHANIC CALLED TO NOTIFY OF NEED FOR RN FACULTY. DECK MECHANIC TO NOTIFY NURSE WHEN MONITOR IS READY.
--- NOTE | 2019-07-13 17:32 | NUR ---
PUREWICK PLACED AND HOOKED TO APPROPRIATE AMOUNT OF SUCTION. PT EDUCATED ON USE OF PUREWICK. PT VERBALIZES UNDERSTANDING.
[2019-07-13 17:46] LABS: APPEARANCE CLEAR (CLEAR); BILIRUBIN NEGATIVE (NEGATIVE); COLOR YELLOW (YELLOW); GLUCOSE NEGATIVE (NEGATIVE); KETONE NEGATIVE (NEGATIVE); NITRITE NEGATIVE (NEGATIVE); PROTEIN NEGATIVE (NEGATIVE); UROBILINOGEN NORMAL (NORMAL)
[2019-07-13 18:12] VITALS: BP 188/90; BMI 21.4
--- NOTE | 2019-07-13 19:30 | NUR ---
PT A/OX4, LUNGS CLEAR, LEFT AC PIV INTACT WITH NS @ 50CC/HR, PUREWICK IN USE FOR VOIDING, NO DISTRESS NOTED
[2019-07-14 00:36] VITALS: BP 161/76
[2019-07-14 05:08] VITALS: BP 159/80
[2019-07-14 06:49] LABS: BASOPHILS 0.2 % (0-2); EOSINOPHILS 3.4 % (0-7); HEMATOCRIT 34.6 % (36.0-48.0); IMMATURE GRANULOCYTES 0.2 % (0-5); LYMPHOCYTES 26.3 % (15-50); MCH 31.7 pg (26.0-34.0); MCHC 34.7 g/dL (31.0-37.0); MCV 91.3 fL (80.0-100.0); MEAN PLATELET VOLUME 10.2 fL (7.4-10.4); MONOCYTES 8.1 % (2-11); NEUTROPHILS 61.8 % (40-80); PLATELET COUNT 233 10x3/uL (130-400); RBC 3.79 10x6/uL (4.00-5.40); RDW 13.2 % (11.5-14.5)
[2019-07-14 07:00] LABS: WBC 5.7 10x3/uL (4.8-10.8)
[2019-07-14 07:17] LABS: ANION GAP 11.2 mmol/L (8-16); CALCIUM 8.1 mg/dL (8.5-10.1); CARBON DIOXIDE 27.1 mmol/L (21.0-32.0); CREATININE - SERUM 0.9 mg/dL (0.6-1.3); POTASSIUM - SERUM 4.3 mmol/L (3.5-5.1)
--- NOTE | 2019-07-14 07:35 | NUR ---
PT RESTING IN BED WITH EYES CLOSED, EASILY AROUSED TO SPEECH. ALERT AND ORIENTED. REPORTS PAIN 3/10 AFTER RCVING MORPHINE FROM NIGHT NURSE. BREATHING EVEN AND NONLABORED, DENIES NEEDS AT THIS TIME. WILL CONT TO MONITOR.
[2019-07-14 09:25] VITALS: BP 143/70
--- NOTE | 2019-07-14 11:30 | NUR ---
PT REPORTS PAIN /10, ADMININSTERED MORPHINE PER DRS ORDERS.
[2019-07-14 12:14] VITALS: BP 142/63
--- NOTE | 2019-07-14 13:27 | NUR ---
PT REQUESTING SOMETHING FOR MUSCLE SPASMS, ADMINISTERED FLEXERIL PER DRS ORDERS. WILL CONT TO MONITOR.
[2019-07-14 15:01] VITALS: Ht 160 cm; Wt 54.9 kg
[2019-07-14 15:53] VITALS: BP 153/80
--- NOTE | 2019-07-14 19:00 | NUR ---
BEDSIDE REPORT RECEIVED AND CARE OF PT ASSUMED. PT LYING IN LOW GOODEN'S POSITION WATCHING TV. IV TO LEFT AC PATENT WITH NS INFUSING AT 50 ML/HR. TELEMETRY IN PLACE AND READING 81 SR AT THIS ASSESSMENT. PUREWICK EXTERNAL CATHETER IN USE. WILL MONITOR FOR NEEDS.
[2019-07-14 19:54] VITALS: BP 173/80
--- NOTE | 2019-07-14 20:10 | NUR ---
HS MEDICATIONS GIVEN TO INCLUDE FLEXERIL PER PRN ORDER, PER REQUEST. WILL CONTINUE TO MONITOR FOR NEEDS.
--- NOTE | 2019-07-14 21:18 | NUR ---
MORPHINE 1 MG GIVEN PER REQUEST FOR PAIN, PER PRN ORDER. WILL CONTINUE TO MONITOR [place] FOR NEEDS.
[2019-07-15] VITALS (13 sets, daily range): BP systolic 118–182; BP diastolic 60–95
[2019-07-15 06:25] LABS: BASOPHILS 0.1 % (0-2); EOSINOPHILS 2.2 % (0-7); HEMATOCRIT 37.7 % (36.0-48.0); HEMOGLOBIN 13.2 g/dL (12-16); IMMATURE GRANULOCYTES 0.1 % (0-5); LYMPHOCYTES 18.6 % (15-50); MCH 32.1 pg (26.0-34.0); MCV 91.7 fL (80.0-100.0); MEAN PLATELET VOLUME 10.2 fL (7.4-10.4); MONOCYTES 7.3 % (2-11); NEUTROPHILS 71.7 % (40-80); PLATELET COUNT 251 10x3/uL (130-400); RBC 4.11 10x6/uL (4.00-5.40)
[2019-07-15 06:43] LABS: ALBUMIN 3.1 g/dL (3.4-5.0); ANION GAP 11.9 mmol/L (8-16); BILIRUBIN - TOTAL 0.56 mg/dL (0.2-1.3); CALCIUM 8.4 mg/dL (8.5-10.1); CARBON DIOXIDE 29.2 mmol/L (21.0-32.0); CREATININE - SERUM 0.8 mg/dL (0.6-1.3); POTASSIUM - SERUM 4.1 mmol/L (3.5-5.1); PROTEIN - SERUM 6.6 g/dL (6.4-8.2)
[2019-07-15 06:44] LABS: WBC 8.1 10x3/uL (4.8-10.8)
--- NOTE | 2019-07-15 09:00 | NUR ---
PT ALERT AQND ORIENTED WITH GOOD ROM OF EXT.X4 NO PERIPHERAL EDEMA NOTED WITH PEDAL PULSES NOTED. PT. C/O LUMBAR PAIN. PT REMAINS NPO PENDING SURGERY. DENIES ANY PAIN OR DISCOMFORT AT THIS TIME. ENCOURAGED TO USE CALL LIGHT FOR ASSIST.
--- NOTE | 2019-07-15 10:15 | NUR ---
PT LEFT FOR PROCEDURE IN IR WITH IR STAFF.
--- NOTE | 2019-07-15 11:15 | NUR ---
PT RETURNED TO ROOM AND STABLE LYING IN SUPINE POSITION FOR 1 HR.
--- NOTE | 2019-07-15 13:53 | MORECARE ---
CASE MANAGEMENT DISCHARGE SUMMARY PATIENT: TAYLOR GREGORIO UNIT: [id number] ADM DATE: 07/14/19 AGE: 74 : 43 SEX: F ROOM/BED: D.2233 AUTHOR: EJ,DOC PHYSICIAN: REFERRING PHYSICIAN: VINCE JAMES MD DATE OF SERVICE: 07/15/19 Discharge Plan Patient Name: TAYLOR GREGORIO Facility: [facility]:[place] : 1945 Planned Disposition: Home Anticipated Discharge Date: Discharge Date: Expected LOS: Initial Reviewer: [email or web address] Initial Review Date: 07/15/2019 Generated: 07/15/19 2:52 pm Comments DCP- Discharge Planning Updated by [email or web address]: Brii Aguila on 07/15/19 12:[address] Patient Name: TAYLOR GREGORIO Admission Status: ER Accout number: [id number] Admission Date: 07-14-2019 : 1945 Admission Diagnosis: Attending: VINCE JAMES Current LOS: 1 Anticipated DC Date: Planned Disposition: Home Primary Insurance: MEDICARE A & B Discharge Planning Comments: CM met with patient to complete initial dc planning assessment. CM educated patient on the CM role and verbal consent given by patient to complete assessment. Patient lives at home with her . At discharge patient plans to return and feels this is a safe discharge. CM discussed availability of home health, rehab services, and medical equipment. Patient states her son has a rental company in [place], and she has all the DME she needs. States does not feel like she needs home health or rehab at this time, but just had her procedure done and has not been up yet. CM will continue to follow and will assist as needed with dc plans/needs. Glassware Selector: Brii Aguila DCPIA - Discharge Planning Initial Assessment Updated by [email or web address]: Brii Aguila on 07/15/19 1:46 pm * Is the patient Alert and Oriented? Yes * How many steps to enter\exit or inside your home? 12/10 flight * PCP Dr. Landin * Pharmacy [facility] on [address] * Preadmission Environment Home with Family * ADLs Independent * Equipment Cane Walker Wheelchair * List name and contact numbers for known caregivers / representatives who currently or will assist patient after discharge: Sunny - [email or web address] - [phone] * Verbal permission to speak to the caregivers and representatives has been obtained from the patient. Yes * Community resources currently utilized None * Additional services required to return to the preadmission environment? No * Can the patient safely return to the preadmission environment? Yes * Has this patient been hospitalized within the prior 30 days at any hospital? Yes Patient Name: TAYLOR GREGORIO Page [phone] at 1353 All edits/amendments must be made on the electronic document DICTATION DATE: 07/15/19 1352 DESSERT CUP MACHINE FEEDER: AILEEN 07/15/19 1352 RPT#: [id number] PR DATE: STATUS: ADM IN [facility] [address] [place] [address] END OF REPORT
--- NOTE | 2019-07-15 19:00 | NUR ---
BEDSIDE REPORT RECEIVED AND CARE OF PT ASSUMED. PT LYING ON RIGHT SIDE WITH EYES CLOSED. IV TO RIGHT FA PATENT WITH NS INFUSING AT 50 ML/HR. TELEMETRY IN PLACE PER ORDER. WILL MONITOR FOR NEEDS.
--- NOTE | 2019-07-15 21:32 | NUR ---
HS MEDICATIONS GIVEN TO INCLUDE MORPHINE IVP AND FLEXERIL PO FOR PAIN, PER REQUEST, PER PRN ORDER. WILL MONITOR FOR EFFECTIVESS.
[2019-07-16] VITALS: BP 164/71
[2019-07-16 04:00] VITALS: BP 157/78
[2019-07-16 07:02] LABS: HEMATOCRIT 36.2 % (36.0-48.0); HEMOGLOBIN 12.7 g/dL (12-16); MCH 31.8 pg (26.0-34.0); MCHC 35.1 g/dL (31.0-37.0); MCV 90.7 fL (80.0-100.0); MEAN PLATELET VOLUME 10.5 fL (7.4-10.4); PLATELET COUNT 220 10x3/uL (130-400); RBC 3.99 10x6/uL (4.00-5.40); RDW 12.8 % (11.5-14.5)
[2019-07-16 07:26] LABS: ALBUMIN 2.8 g/dL (3.4-5.0); BILIRUBIN - TOTAL 0.86 mg/dL (0.2-1.3); CALCIUM 8.6 mg/dL (8.5-10.1); CARBON DIOXIDE 27.5 mmol/L (21.0-32.0); CREATININE - SERUM 0.8 mg/dL (0.6-1.3); POTASSIUM - SERUM 3.5 mmol/L (3.5-5.1); PROTEIN - SERUM 6.8 g/dL (6.4-8.2)
[2019-07-16 07:57] VITALS: BP 172/76
[2019-07-16 08:05] LABS: BASOPHILS 1 % (0-2); EOSINOPHILS 1 % (0-7); LYMPHOCYTES 16 % (15-50); MONOCYTES 4 % (2-11); NEUTROPHILS 75 % (40-80); PLATELET ESTIMATE NORMAL; PLATELET MORPHOLOGY GIANT PLTS PRESENT
--- NOTE | 2019-07-16 09:00 | NUR ---
ALERT AND ORIENTED X4 WITH DRESSING INTACT TO BACK. GOOD ROM OF EXT X4. TRAMADOL GIVEN FOR INTERMITTANT BACK PAIN AND EFFECTIVE. INCONTINENT OF URINE WITH PURWICK EFFECTIVE FOR PERICARE. IVF INFUSING TO RT. F/A AT PRESCRIBED RATE. ENCORAGED TO USE CALL LIGHT FOR ASISST.
[2019-07-16] MEDS ORDERED: CYCLOBENZAPRINE10 MG PO (12:01)
--- NOTE | 2019-07-16 13:50 | NUR ---
IV DISCONTINUED AND VERBALIZED UNDERSTANDING OF DISCHARGE INSTRUCTIONS. LEFT VIA POV WITH ASSSIT OF FAMILY. STABLE AT TIME OF DEPARTURE.
--- NOTE | 2019-07-18 12:43 | MORECARE ---
CASE MANAGEMENT DISCHARGE SUMMARY PATIENT: TAYLOR GREGORIO UNIT: [id number] ADM DATE: 07/14/19 AGE: 74 : 43 SEX: F ROOM/BED: D.2233 AUTHOR: EJ,DOC PHYSICIAN: REFERRING PHYSICIAN: VINCE JAMES MD DATE OF SERVICE: 07/18/19 Discharge Plan Patient Name: TAYLOR GREGORIO Facility: [facility]:[place] : 1945 Planned Disposition: Home Anticipated Discharge Date: Discharge Date: 07/16/2019 Expected LOS: 0 Initial Reviewer: [email or web address] Initial Review Date: 07/15/2019 Generated: 07/18/19 1:42 pm Comments DCP- Discharge Planning Updated by [email or web address]: Brii Aguila on 07/15/19 12:[address] Patient Name: TAYLOR GREGORIO Admission Status: ER Accout number: [id number] Admission Date: 07-14-2019 : 1945 Admission Diagnosis: Attending: VINCE JAMES Current LOS: 1 Anticipated DC Date: Planned Disposition: Home Primary Insurance: MEDICARE A & B Discharge Planning Comments: CM met with patient to complete initial dc planning assessment. CM educated patient on the CM role and verbal consent given by patient to complete assessment. Patient lives at home with her . At discharge patient plans to return and feels this is a safe discharge. CM discussed availability of home health, rehab services, and medical equipment. Patient states her son has a rental company in [place], and she has all the DME she needs. States does not feel like she needs home health or rehab at this time, but just had her procedure done and has not been up yet. CM will continue to follow and will assist as needed with dc plans/needs. Couples Therapist: Brii Aguila DCPIA - Discharge Planning Initial Assessment Updated by [email or web address]: Brii Aguila on 07/15/19 1:46 pm * Is the patient Alert and Oriented? Yes * How many steps to enter\exit or inside your home? 2 flight * PCP Dr. Landin * Pharmacy [facility] on [address] * Preadmission Environment Home with Family * ADLs Independent * Equipment Cane Walker Wheelchair * List name and contact numbers for known caregivers / representatives who currently or will assist patient after discharge: Jly - [email or web address] - [phone] * Verbal permission to speak to the caregivers and representatives has been obtained from the patient. Yes * Community resources currently utilized None * Additional services required to return to the preadmission environment? No * Can the patient safely return to the preadmission environment? Yes * Has this patient been hospitalized within the prior 30 days at any hospital? Yes Last DP export: 07/15/19 12:53 pm Patient Name: TAYLOR GREGORIO Page 60521 at 1243 All edits/amendments must be made on the electronic document DICTATION DATE: 07/18/19 1242 UNIFORM DESIGNER: AILEEN 07/18/19 1242 RPT#: [id number] DC DATE:07/16/19 STATUS: DIS IN [facility] [address] [place] [address] END OF REPORT
== END 2019-07-16 13:50 | disposition home or self-care (01) | DRG 477 ==
LOC: D.ER 12:42 → D.MS 15:36 → OBSVTIME 15:36 → D.MS 15:36
PROVIDERS: Family Medicine; Radiology Diagnostic Radiology; ADMIT Family Medicine; ATTEND Family Medicine
PROC: 0QB03ZX Excision of Lumbar Vertebra, Percutaneous Approach, Diagnostic (ICD-10-PCS; 2019-07-15)
PROC: 0QU03JZ Supplement Lumbar Vertebra with Synthetic Substitute, Percutaneous Approach (ICD-10-PCS; 2019-07-15)
PROC: 0QS03ZZ Reposition Lumbar Vertebra, Percutaneous Approach (ICD-10-PCS; principal; 2019-07-15 09:00)
DX: M48.56XA Collapsed vertebra, not elsewhere classified, lumbar region, initial encounter for fracture (principal); I21.9 Acute myocardial infarction, unspecified; M85.80 Other specified disorders of bone density and structure, unspecified site; I10 Essential (primary) hypertension; I25.10 Atherosclerotic heart disease of native coronary artery without angina pectoris; K21.9 Gastro-esophageal reflux disease without esophagitis; M54.9 Dorsalgia, unspecified; F32.9 Major depressive disorder, single episode, unspecified; X50.0XXA Overexertion from strenuous movement or load, initial encounter; Y92.009 Unspecified place in unspecified non-institutional (private) residence as the place of occurrence of the external cause